=== PATIENT | female | born 1960 | race Caucasian/White ===

== ENCOUNTER → 2016-11-27 | Outpatient (CLI) | payer BC ==
[2015-12-07 19:05] VITALS: BP 111/62
[~2016-11-27] MED LIST: ASPI-630 PO; BUPR150T8 PO; CALC400T5 PO; CARI350T PO; CARV6.252 PO; CLON1TAB PO; CONTRAST GIVEN MC PRN; CYCL10TA2 PO; ESTR0.5T PO; GABA-586 PO; HYDR-971 PO; IBUP-1007 PO; IOHEXOL 300 MG/ML 50 ML VIAL. IJ ONE; MULT1TAB52 PO; OXYB5TAB7 PO; QUIN20TA7 PO; SIMV40TA3 PO; SPIR1TAB PO; TRAZ100T12 PO
--- NOTE | 2016-11-27 10:08 | RAD ---
IVP Clinical Indication: blood in urine and right side kidney stone Comparison: CT abdomen and pelvis dated 11/25/2015 Findings: 1.0 cm nonobstructing stone within the inferior pole of the right kidney. No other radiopaque calculi identified. No hydronephrosis. No hydroureter. Contrast is seen coursing into the bladder. Surgical clips in the left pelvis. Moderate colonic stool. Gastric lap band device. IMPRESSION: 1.0 cm nonobstructing stone within the inferior pole of the right kidney. No hydronephrosis or hydroureter.
== END | disposition home or self-care (01) ==
LOC: RAD 07:45
PROVIDERS: ATTEND Internal Medicine
DX: R31.9 Hematuria, unspecified (principal); N20.0 Calculus of kidney
CPT/HCPCS: 74400; Q9967

== ENCOUNTER 2017-04-05 13:49 | Emergency (ER) | payer BC ==
[~2017-04-05] VITALS: Ht 162.6 cm; Wt 149.7 kg
[~2017-04-05 13:49] MED LIST changes: -CONTRAST GIVEN MC PRN; -IOHEXOL 300 MG/ML 50 ML VIAL. IJ ONE; +QUIN20TA17 PO; -QUIN20TA7 PO
--- NOTE | 2017-04-05 14:53 | PHYS DOC ---
Adult General Chief Complaint Chief Complaint: HIP PAIN HPI HPI Patient is a 56 year old female who presents with left hip pain. She has a history of peritoneal carcinoma with ascites and was trying to or 3 steps in her house when she missed a step and fell. She states she struck a table with her left hip. This was Saturday. She been having pain since then. She' s been walking on it. She's been taking her normal amount of Ramona that she has from her cancer doctor for her chronic pain with her cancer. She denies any back pain or abdominal pain. She states on the lateral aspect of her left hip. Eyes any weakness she states that it just hurts to get around. Review of Systems Review of Systems Constitutional: Denies fever or chills [] Eyes: Denies change in visual acuity, redness, or eye pain [] HENT: Denies nasal congestion or sore throat [] Respiratory: Denies cough or shortness of breath [] Cardiovascular: No additional information not addressed in HPI [] GI: Denies abdominal pain, nausea, vomiting, bloody stools or diarrhea [] : Denies dysuria or hematuria [] Musculoskeletal: Denies back pain positive for left hip pain Integument: Denies rash or skin lesions [] Neurologic: Denies headache, focal weakness or sensory changes [] Endocrine: Denies polyuria or polydipsia [] All other systems were reviewed and found to be within normal limits, except as documented in this note. Allergies Allergies Allergies Coded Allergies Type Severity Reaction Last Updated Verified ciprofloxacin Allergy Intermediate 11/26/15 Yes niacin Allergy Intermediate 11/26/15 Yes rosuvastatin Allergy Mild 11/25/15 Yes Physical Exam Physical Exam Constitutional: Well developed, well nourished, no acute distress, non-toxic appearance. [] HENT: Normocephalic, atraumatic, bilateral external ears normal, oropharynx moist, no oral exudates, nose normal. [] Eyes: PERRLA, EOMI, conjunctiva normal, no discharge. [] Neck: Normal range of motion, no tenderness, supple, no stridor. [] Cardiovascular:Heart rate regular rhythm, no murmur [] Lungs & Thorax: Bilateral breath sounds clear to auscultation [] Abdomen: Bowel sounds normal, soft, no tenderness, no masses, no pulsatile masses. [] Skin: Warm, dry, no erythema, no rash. [] Back: No tenderness, no CVA tenderness. [] Extremities: Palpation of the left hip, able to internally external rotate hip without any discomfort or pain, no cyanosis, no clubbing, ROM intact, no edema. Pedis pulses left lower extremities 2+ sensation intact to light touch, strength 5 out of 5 Neurologic: Alert and oriented X 3, normal motor function, normal sensory function, no focal deficits noted. [] Psychologic: Affect normal, judgement normal, mood normal. [] Current Patient Data Vital Signs Vital Signs Date Time Temp Pulse Resp B/P (MAP) Pulse Ox O2 Delivery O2 Flow Rate FiO2 04/05/17 14:30 97.9 80 18 134/80 (98) 94 Room Air 97.9 EKG EKG [] Radiology/Procedures Radiology/Procedures [facility] [address] [place] [address] IMAGING REPORT Signed PATIENT: DEANNE RASHID ACCOUNT: [id number] : 1960 LOCATION: ER AGE: 56 SEX: F EXAM STATUS: REG ER ORD. PHYSICIAN: SEBAS LAM MD REASON: pain after trauma Saturday PROCEDURE: HIP LEFT 2V WITH PELVIS Pelvis with left hip, 3 views, 04/05/2017: History: Trauma, hip pain No acute fracture or dislocation is identified. The hip joints are well-maintained. There are scarring changes at the symphysis pubis. Moderate degenerative change is evident in the lower lumbar spine. IMPRESSION: No acute bony abnormality is detected. DICTATED and SIGNED BY: GRAY FRANCIS MD DATE: 04/05/17 1525 CC: SEBAS LAM MD; OLYA WOOTEN MD ~ Impressions: Hip pain Course & Med Decision Making Course & Med Decision Making Pertinent Labs and Imaging studies reviewed. (See chart for details) She is able to ambulate, x-rays are negative. Return precautions given. Dragon Disclaimer Dragon Disclaimer This electronic medical record was generated, in whole or in part, using a voice recognition dictation system. Departure Departure Impression: Primary Impression: Hip pain Disposition: HOME, SELF-CARE Condition: STABLE Referrals: OLYA WOOTEN MD (PCP) Patient Instructions: Hip Pain Additional Instructions: X-rays do not show anything broken. You follow-up with her primary care physician as needed. You likely just bruised your hip and it will take a few days to heal and if you have numbness tingling or weakness in the leg please return back to emergency department immediately. SEBAS LAM MD Apr 05, 2017 14:53
[2017-04-05 15:10] VITALS: BP 134/74
--- NOTE | 2017-04-05 15:31 | RAD ---
Pelvis with left hip, 3 views, 04/05/2017: History: Trauma, hip pain No acute fracture or dislocation is identified. The hip joints are well-maintained. There are scarring changes at the symphysis pubis. Moderate degenerative change is evident in the lower lumbar spine. IMPRESSION: No acute bony abnormality is detected.
== END 2017-04-05 15:48 | disposition home or self-care (01) ==
LOC: ER 13:49
DX: M25.552 Pain in left hip (principal); G89.29 Other chronic pain; Z88.8 Allergy status to other drugs, medicaments and biological substances; Z88.1 Allergy status to other antibiotic agents; W10.9XXA Fall (on) (from) unspecified stairs and steps, initial encounter; Y93.89 Activity, other specified; Y92.009 Unspecified place in unspecified non-institutional (private) residence as the place of occurrence of the external cause; Y99.8 Other external cause status
CPT/HCPCS: 73502; 99284